=== PATIENT | female | born 1965 | race Caucasian/White ===

== ENCOUNTER 2017-12-03 11:15 | Day surgery (SDC) | payer OTHER ==
[~2017-12-03 11:15] MED LIST: CEFAZOLIN 1 GM INJ
[2017-12-03] MEDS ORDERED: PROPOFOL 20 ML ×2 (13:08→14:15)
[2017-12-03] MEDS ORDERED: FENTAnyl 50 MCG/ML VIAL (13:08)
[2017-12-03] MEDS ORDERED: MIDAZOLAM 1 MG/ML 2 ML INJ (13:08)
[2017-12-03] MEDS ORDERED: LIDOCAINE 2% (SDV) 5 ML INJ (13:08)
[2017-12-03] MEDS: POLYMYXIN/BACITRACIN 1L IRRIG (13:23)
[2017-12-03] MEDS: BUPIVACAINE 0.5% (SDV) 30 ML INJ (13:23)
[2017-12-03] MEDS: LIDOCAINE 1% (MPF) 30 ML INJ (13:23)
[2017-12-03] MEDS ORDERED: ONDANSETRON 4 MG INJ (13:53)
[2017-12-03] MEDS ORDERED: ACETAMINOPHEN 1000MG/100ML IV 100 ML (13:53)
[2017-12-03] MEDS ORDERED: FAMOTIDINE 20 MG INJ (13:53)
[2017-12-03] MEDS ORDERED: DEXAMETHASONE 4 MG/ML 1 ML INJ (14:09)
[2017-12-03] MEDS ORDERED: HYDROmorphONE 1 MG/5 ML IV SYRINGE IV (15:00)
[2017-12-03] MEDS ORDERED: ONDANSETRON 4 MG INJ IV (15:00)
[2017-12-03] MEDS ORDERED: LABETALOL HCL 20MG INJ IV (15:00)
[2017-12-03] MEDS ORDERED: FENTAnyl 50 MCG/ML VIAL IV ×2 (15:00)
[2017-12-03] MEDS ORDERED: hydrALAzine 20 MG INJ IV (15:00)
== END 2017-12-03 15:50 | disposition home or self-care (01) ==
LOC: SDS 11:15
DX: M21.611 Bunion of right foot (principal); E11.9 Type 2 diabetes mellitus without complications; I10 Essential (primary) hypertension
CPT/HCPCS: 28297; 82962